=== PATIENT | male | born 1950 | race Caucasian/White ===

== ENCOUNTER 2018-04-08 22:33 | Emergency (ER) | payer MEDICARE ==
[~2018-04-08] VITALS: Ht 188 cm; Wt 119.3 kg
[2018-04-08] MEDS ORDERED: ALLO100 PO (23:03)
[2018-04-08] MEDS ORDERED: ATOR40TA PO (23:03)
[2018-04-08] MEDS ORDERED: CETI5 PO (23:04)
[2018-04-08] MEDS ORDERED: CYCL10 PO (23:05)
[2018-04-08] MEDS ORDERED: DIVA500EC PO (23:07)
[2018-04-08] MEDS ORDERED: DONE10 PO (23:07)
[2018-04-08] MEDS ORDERED: DULO30 PO (23:08)
[2018-04-08] MEDS ORDERED: HYDR100 PO (23:09)
[2018-04-08] MEDS ORDERED: Ipratropium Bro30 ML NS (23:09)
[2018-04-08] MEDS ORDERED: LEVE500 PO (23:10)
[2018-04-08] MEDS ORDERED: Omeprazole20 M1 PO (23:12)
[2018-04-08] MEDS ORDERED: TAMS.4ER PO (23:13)
[2018-04-08 23:55] LABS: BASOPHILS ABSOLUTE AUTO 0.01 K/mm3 (0.00-0.23); BASOPHILS PERCENT AUTO 0 % (0-2); EOSINOPHILS ABSOLUTE AUTO 0.04 K/mm3 (0.00-0.68); EOSINOPHILS PERCENT AUTO 1 % (0-6); Hematocrit 32.3 % (37.0-53.0); Hemoglobin 10.4 g/dL (13.5-17.5); IMMATURE GRAN ABSOLUTE AUTO 0.04 K/mm3 (0.00-0.10); IMMATURE GRAN PERCENT AUTO 1 % (0-1); LYMPHOCYTES ABSOLUTE AUTO 0.99 K/mm3 (0.84-5.20); LYMPHOCYTES PERCENT AUTO 23 % (21-46); MONOCYTES ABSOLUTE AUTO 0.58 K/mm3 (0.16-1.47); MONOCYTES PERCENT AUTO 13 % (4-13); Mean Corpuscular HGB 30.5 pg (26.0-34.0); Mean Corpuscular HGB Conc 32.2 g/dL (31.5-36.5); Mean Corpuscular Volume 95 fL (80-100); Mean Platelet Volume 12.2 fL (9.1-12.4); NEUTROPHILS ABSOLUTE AUTO 2.66 K/mm3 (1.96-9.15); NEUTROPHILS PERCENT AUTO 62 % (41-73); Platelet Count 50 K/mm3 (150-400); RDW Coefficient Variation 14.6 % (11.7-14.2); RDW Standard Deviation 50.5 fL (35.1-46.3); Red Blood Cell Count 3.41 M/mm3 (4.30-5.90); White Blood Cell Count 4.32 K/mm3 (4.00-11.30)
[2018-04-09 00:07] LABS: Alanine Aminotransfer (ALT/SGP 23 U/L (12-78); Alk Phos 184 U/L (50-136); Anion Gap 7 mmol/L (6-16); Aspartate Aminotrans (AST/SGOT 30 U/L (12-37); Bilirubin, Total 0.8 mg/dL (0.1-1.0); Blood Urea Nitrogen 27 mg/dL (8-24); Bun/Creatinine Ratio 15.8 (12.0-20.0); CO2, Blood 28 mmol/L (21-32); Calcium, Blood 8.9 mg/dL (8.5-10.1); Chloride, Blood 109 mmol/L (98-108); Creatinine, Blood 1.71 mg/dL (0.60-1.20); Globulin, Blood 2.9 g/dL (2.2-4.0); Glomerular Filtration Rate 42 (60-); Glucose, Blood 113 mg/dL (70-99); Potassium, Blood 3.4 mmol/L (3.5-5.5); Sodium, Blood 144 mmol/L (136-145); Total Protein, Blood 5.9 g/dL (6.4-8.2); Troponin I <0.015 ng/mL (0.000-0.040)
[2018-04-09] MEDS ORDERED: POTCHL20ER PO (01:51)
[2018-04-09] MEDS ORDERED: Lasix40 MG PO (01:51)
== END 2018-04-09 02:45 | disposition home or self-care (01) ==
LOC: ER 22:33
PROVIDERS: Emergency Medicine
DX: I11.0 Hypertensive heart disease with heart failure (principal); I50.9 Heart failure, unspecified; R31.9 Hematuria, unspecified; I48.91 Unspecified atrial fibrillation; G40.909 Epilepsy, unspecified, not intractable, without status epilepticus; Z88.8 Allergy status to other drugs, medicaments and biological substances; Z79.899 Other long term (current) drug therapy; Z87.891 Personal history of nicotine dependence
CPT/HCPCS: 71046; 80053; 83880; 84484; 85025; 93005; 93010; 99284-25